=== PATIENT | female | born 1965 | race Caucasian/White ===

== ENCOUNTER 2017-04-17 14:39 | Emergency (ER) | payer MEDICAID ==
[~2017-04-17] VITALS: Ht 152.4 cm; Wt 40.8 kg
--- NOTE | 2017-04-17 14:47 | NUR ---
Patient BIBA BLS, transferred to bed 7. RN evaluating patient at bedside.
[2017-04-17 14:51] VITALS: BP 142/73
--- NOTE | 2017-04-17 15:00 | NUR ---
51 F BIB DAY PROGRAM CAREGIVER WITH C/O AFTER BEING OBSERVED HITTING HER HEAD AGAINST THE FLOOR TWICE IN THE FOREHEAD AND TWICE TO POSTERIOR HEAD; CAREGIVER DENIES ANY LOC OR VOMITTING; NO VISIBLE TRAUMA OR INJURY; DAY PROGRAM CAREGIVER STATES PT IS AT HER NEURO BASELINE; PT HAS HX EXPLOSIVE ANGER DISORDER, HEARING LOSS, DEVELOPMENTAL DELAY; PT IS ALERT AND MOVING ALL EXTREMITIES; RR ARE EVEN AND UNLABORED; VSS; PATIENT POSITIONED FOR COMFORT; HOB ELEVATED; BEDRAILS UP X2; BED DOWN. ER MD MADE AWARE OF PT STATUS.
--- NOTE | 2017-04-17 15:14 | NUR ---
Dr. Carrillo evaluating patient at bedside.
[2017-04-17 15:27] VITALS: BP 136/85
--- NOTE | 2017-04-17 15:27 | NUR ---
Patient discharged with v/s stable. Written and verbal after care instructions given and explained. Patient verbalized understanding. Ambulatory with to car. All questions addressed prior to discharge. Advised to follow up with PMD.
== END 2017-04-17 15:27 | disposition home or self-care (01) ==
LOC: MED 14:39
DX: S09.90XA Unspecified injury of head, initial encounter (principal); W22.01XA Walked into wall, initial encounter; Y93.89 Activity, other specified; Y92.89 Other specified places as the place of occurrence of the external cause; Y99.8 Other external cause status
CPT/HCPCS: 99283

== ENCOUNTER 2022-05-03 09:30 | Emergency (ER) | payer MEDICAID ==
[~2022-05-03] VITALS: Ht 160 cm; Wt 61.2 kg
[2022-05-03 09:30] VITALS: BP 141/70
[2022-05-03] MEDS ORDERED: BACITRACIN OINT 500 UNITS/GM PKT TP ONE (11:40)
[2022-05-03] MEDS ORDERED: ACETAMINOPHEN 325 MG TAB PO ONE (11:40)
--- NOTE | 2022-05-03 11:56 | NUR ---
NON ADHERENT APPLIED TO FOREHEAD AFTER IRRIGATION
--- NOTE | 2022-05-03 12:03 | NUR ---
56 y/o female biba for laceration to right forehead. Patient is non-verbal and blind. Per caregiver, patient is at baseline. Patient was reaching down and hit floor. Patient's laceration noted with scant amount of blood. Denies any LOC. Medical History: Blind, MR TELLO
[2022-05-03] MEDS ORDERED: BACI1PAC6 TP (12:59)
--- NOTE | 2022-05-03 13:20 | NUR ---
Patient discharged with v/s stable. Written and verbal after care instructions given and explained. Patient verbalized understanding. Ambulatory with by caregiver. All questions addressed prior to discharge. Advised to follow up with PMD.
== END 2022-05-03 13:20 | disposition home or self-care (01) ==
LOC: MED 09:30
DX: S00.81XA Abrasion of other part of head, initial encounter (principal); W18.30XA Fall on same level, unspecified, initial encounter; Y93.89 Activity, other specified; Y92.89 Other specified places as the place of occurrence of the external cause; Y99.8 Other external cause status
CPT/HCPCS: 99283